=== PATIENT | female | born 1975 | race Caucasian/White ===

== ENCOUNTER → 2020-01-31 14:54 | Outpatient (BNVA) | payer BC, SELFPAY | PROVIDERS: Family Provider Family Medicine; Visit Provider Obstetrics & Gynecology | DX: Z01.89 Encounter for other specified special examinations (principal) ==

== ENCOUNTER 2021-01-29 13:00 | Outpatient (CLI) | payer BC, SELFPAY ==
--- NOTE | 2021-01-29 13:18 | MM_ITS ---
WS: [id number] SCREENING DIGITAL MAMMOGRAM WITH CAD HISTORY: SCREENING COMPARISON: 11/03/2019 and 10/14/2019 Bilateral CC and MLO views submitted. Computer aided detection analyzed. Breast composition: The breasts are heterogeneously dense, which may obscure small masses. Well-circu mscribed mass along the inferior medial LEFT breast near 8:00 anteriorly measures 10 x 11 mm. This ma ss has increased in size since the prior study. No distortion. MM/[place] [id number] IMPRESSION: BI-RADS: 0-Incomplete: Need additional imaging evaluation FOLLOW UP: Need Additional Imaging LEFT breast: Spot compression views (CC and MLO). True ML. Ultrasound to follow if abnormality persists.
== END 2021-01-29 13:01 | disposition home or self-care (01) ==
PROVIDERS: PCP Family Medicine; Visit Provider Obstetrics & Gynecology
DX: Z12.31 Encounter for screening mammogram for malignant neoplasm of breast (principal); N63.24 Unspecified lump in the left breast, lower inner quadrant
CPT/HCPCS: 77067

== ENCOUNTER 2021-02-06 10:21 | Outpatient (CLI) | payer BC, SELFPAY ==
--- NOTE | 2021-02-06 10:25 | US_ITS ---
WS: [id number] ADDITIONAL VIEWS LEFT MAMMOGRAM LEFT BREAST ULTRASOUND HISTORY: N63.20 - Unspecified lump in the left breast, unspecified quadrant COMPARISON: 11/03/2019, 01/29/2021, 11/03/2019 10/14/2019 LEFT MAMMOGRAM: Spot compression views and true ML. Dense asymmetry with slightly lobulated margins persists in the medial LEFT breast just below the nip ple line. This mass measures 10 x 9 mm. No distortion. Ultrasound to follow. LEFT BREAST ULTRASOUND 2-D and color Doppler imaging submitted. Well-circumscribed solid nodule at 8:00, 1 cm from the nipple. Mass measures 1.0 x 1.1 x 0.8 cm. Mass is slightly taller than wide. There is a small amount of increased vascularity. US/US breast LT limited* [id number] IMPRESSION: BI-RADS: 4-Suspicious Finding-Biopsy Should Be Considered FOLLOW UP: Biopsy Recommended Ultrasound-guided biopsy recommended of the LEFT breast mass at 8:00.
--- NOTE | 2021-02-06 10:30 | MM_ITS ---
WS: [id number] ADDITIONAL VIEWS LEFT MAMMOGRAM LEFT BREAST ULTRASOUND HISTORY: N63.20 - Unspecified lump in the left breast, unspecified quadrant COMPARISON: 11/03/2019, 01/29/2021, 11/03/2019 10/14/2019 LEFT MAMMOGRAM: Spot compression views and true ML. Dense asymmetry with slightly lobulated margins persists in the medial LEFT breast just below the nip ple line. This mass measures 10 x 9 mm. No distortion. Ultrasound to follow. LEFT BREAST ULTRASOUND 2-D and color Doppler imaging submitted. Well-circumscribed solid nodule at 8:00, 1 cm from the nipple. Mass measures 1.0 x 1.1 x 0.8 cm. Mass is slightly taller than wide. There is a small amount of increased vascularity. MM/[place] [id number] IMPRESSION: BI-RADS: 4-Suspicious Finding-Biopsy Should Be Considered FOLLOW UP: Biopsy Recommended Ultrasound-guided biopsy recommended of the LEFT breast mass at 8:00.
== END 2021-02-06 10:22 | disposition home or self-care (01) ==
LOC: RADSHAW 10:22
PROVIDERS: PCP Family Medicine; Visit Provider Obstetrics & Gynecology
DX: N63.24 Unspecified lump in the left breast, lower inner quadrant (principal)
CPT/HCPCS: 76642; 77065

== ENCOUNTER → 2022-06-19 08:30 | Outpatient (BNVA) | payer BC, SELFPAY | PROVIDERS: PCP Family Medicine; Visit Provider Family Medicine | DX: R53.83 Other fatigue (principal); Z00.00 Encounter for general adult medical examination without abnormal findings | CPT/HCPCS: 80053; 80061; 82672; 84144; 84443; 85025 ==

== ENCOUNTER → 2022-06-25 07:40 | Outpatient (BNVA) | payer BC, SELFPAY | PROVIDERS: PCP Family Medicine; Visit Provider Family Medicine | DX: F41.9 Anxiety disorder, unspecified (principal); F32.A Depression, unspecified; R53.83 Other fatigue; N95.9 Unspecified menopausal and perimenopausal disorder | CPT/HCPCS: 82607 ==

== ENCOUNTER → 2022-10-16 10:38 | Outpatient (BNVA) | payer BC, SELFPAY | PROVIDERS: PCP Family Medicine; Visit Provider Family Medicine | DX: J02.9 Acute pharyngitis, unspecified (principal) | CPT/HCPCS: 87071; 87400; 87880 ==

== ENCOUNTER → 2023-11-05 12:03 | Outpatient (BNVA) | payer BC, SELFPAY | PROVIDERS: PCP Family Medicine; Visit Provider Family Medicine | DX: Z00.00 Encounter for general adult medical examination without abnormal findings (principal) | CPT/HCPCS: 80053; 85025 ==

== ENCOUNTER → 2024-01-22 11:34 | Outpatient (BNVA) | payer BC, SELFPAY | PROVIDERS: PCP Family Medicine; Visit Provider Nurse Practitioner | DX: R09.81 Nasal congestion (principal) | CPT/HCPCS: 87400 ==

== ENCOUNTER → 2025-02-23 09:01 | Outpatient (BNVA) | payer BC, SELFPAY | PROVIDERS: PCP Family Medicine; Visit Provider Family Medicine | DX: Z00.00 Encounter for general adult medical examination without abnormal findings (principal) | CPT/HCPCS: 80053; 80061 ==